=== PATIENT | male | born 2000 | race Caucasian/White ===

== ENCOUNTER 2022-07-28 17:03 | Emergency (ER) | payer BC ==
[~2022-07-28 17:03] MED LIST: Iopamidol 370 76% 100 ML VIAL ONE
[2022-07-28 18:17] LABS: ALT (SGPT) 30 U/L (8-55); AST (SGOT) 30 U/L (5-34); Albumin 4.2 g/dL (3.5-5.0); Alkaline Phosphatase 63 U/L (40-110); Anion Gap 12 mmol/L (10-20); BUN (Urea Nitrogen) 8 mg/dL (8.9-20.6); Bilirubin, Total 0.4 mg/dL (0.2-1.2); Calc. Creatinine Clearance 0 mL/min (70-130); Calcium 8.7 mg/dL (7.8-10.44); Carbon Dioxide 27 mmol/L (22-29); Chloride 103 mmol/L (98-107); Estimated GFR 100; Globulin 3.1 g/dL (2.4-3.5); Glucose 87 mg/dL (70-105); Potassium 3.8 mmol/L (3.5-5.1); Protein, Total 7.3 g/dL (6.0-8.3); Sodium 138 mmol/L (136-145)
[2022-07-28 18:36] LABS: Hemoglobin 14.5 g/dL (13.5-17.5); Mean Corpuscular HGB CONC 34.4 g/dL (32.0-36.0); Mean Corpuscular Volume 87.2 fl (81.2-95.1); Mean Platelet Volume 10.2 fl (7.4-10.4); Platelet Count 178 10x3/uL (150-450); RBC Distribution Width 11.7 % (11.5-14.5); Red Blood Cell (RBC) Count 4.84 10x6/uL (4.32-5.72); White Blood Cell (WBC) Count 3.4 10x3/uL (3.5-10.5)
[2022-07-28 19:37] LABS: Band 7 % (5-11); Eosinophils 1 % (0-10); Lymphocytes 16 % (21-51); Monocytes 20 % (0-10); Reactive Lymphocytes 14 % (0-10)
[2022-07-28 19:38] LABS: Neutrophil 41 % (42-75); Smudge Cells SLIGHT; Toxic Granulation SLIGHT
[2022-07-28 19:39] LABS: Platelet Morphology Comment Appears Adequate
[2022-07-28 19:40] LABS: Manual Diff?? YES
[2022-07-28 19:41] LABS: MDiff Complete? YES
== END 2022-07-28 20:20 | disposition home or self-care (01) ==
LOC: CSHERS 17:03
DX: R50.9 Fever, unspecified (principal); R05.9 Cough, unspecified
CPT/HCPCS: 71275; 80053; 83605; 84145; 84443; 85025; 93005; Q9967